=== PATIENT | male | born 1975 | race Caucasian/White ===

== ENCOUNTER 2019-09-18 20:35 | Emergency (ER) | payer MEDICAID ==
[~2019-09-18] VITALS: Ht 180.3 cm; Wt 81.8 kg
[2019-09-18] MEDS ORDERED: KETOROLAC 60 MG/2 ML VIAL (J1885) IM ONE (21:15)
[2019-09-18] MEDS ORDERED: IBUP-1022 PO (21:20)
[2019-09-18] MEDS ORDERED: CYCL10TA PO (21:20)
[2019-09-18 21:55] VITALS: BP 133/78
== END 2019-09-18 21:56 | disposition home or self-care (01) ==
LOC: M ED 20:35
DX: S39.012A Strain of muscle, fascia and tendon of lower back, initial encounter (principal); X58.XXXA Exposure to other specified factors, initial encounter; Y92.89 Other specified places as the place of occurrence of the external cause
CPT/HCPCS: 96372; 99283; J1885; J3360